=== PATIENT | female | born 1995 | race Caucasian/White ===

== ENCOUNTER 2017-05-13 17:32 | Emergency (ER) | payer MEDICAID ==
[~2017-05-13] VITALS: Ht 165.1 cm; Wt 49.0 kg
[2017-05-13 18:07] LABS: URINE BILIRUBIN NEGATIVE (Negative); URINE BLOOD NEGATIVE (Negative); URINE CLARITY CLEAR; URINE COLOR YELLOW; URINE GLUCOSE-RANDOM NEGATIVE (Negative); URINE KETONES 2+ (Negative); URINE LEUKOCYTES-REFLEX NEGATIVE (Negative); URINE NITRITE-REFLEX NEGATIVE (Negative); URINE PROTEIN TRACE (Negative); URINE SPECIFIC GRAVITY >= 1.030 (1.005-1.030); URINE UROBILINOGEN 0.2 E.U./dl (0.2-1.0)
[2017-05-13 18:13] LABS: ABSOLUTE LYMPHOCYTES 1.5 thou/uL (0.8-5.3); ABSOLUTE MONOCYTES 0.6 thou/uL (0.0-1.2); ABSOLUTE NEUTROPHILS 10.1 thou/uL (1.6-8.1); BASOPHILS 0.3 %; EOSINOPHILS 0.1 %; HEMATOCRIT 39.2 % (37.0-47.0); HEMOGLOBIN 13.2 gm/dL (12.0-15.0); MCH 31.1 pg (26.0-34.0); MCHC 33.7 g/dL (28.0-37.0); MCV 92.2 fL (80.0-100.0); MONOCYTES 4.9 %; NUCLEATED RBCS 0 /100WBC; PLATELET COUNT* 204 thou/uL (150-400); POLYS 82.7 %; RBC 4.25 mil/uL (4.20-5.00); RDW-CV 13.3 % (10.5-14.5); WBC 12.2 thou/uL (4.0-11.0)
[2017-05-13 18:18] LABS: CALCIUM 9.1 mg/dL (8.5-10.1); CREATININE 0.7 mg/dL (0.6-1.3); POTASSIUM 3.7 mmol/L (3.5-5.1)
[2017-05-13 18:22] LABS: ALBUMIN 3.9 g/dL (3.4-5.0); TOTAL BILIRUBIN 1.1 mg/dL (<0.1-1.0); TOTAL PROTEIN 6.9 g/dL (6.4-8.2)
[2017-05-13] MEDS ORDERED: ZOFRAN ODT4 MG DISSOLVE (19:25)
[2017-05-13 19:44] VITALS: BP 136/77
== END 2017-05-13 19:46 | disposition home or self-care (01) ==
LOC: M.ERS 17:32
PROVIDERS: Physician Assistant
DX: O26.891 Other specified pregnancy related conditions, first trimester (principal); K52.9 Noninfective gastroenteritis and colitis, unspecified; Z3A.00 Weeks of gestation of pregnancy not specified

== ENCOUNTER 2017-07-03 11:36 | Emergency (ER) | payer OTHER, MEDICAID ==
[~2017-07-03] VITALS: Ht 167.6 cm; Wt 50.8 kg
[~2017-07-03 11:36] MED LIST: ZOFRAN ODT4 MG DISSOLVE
[2017-07-03 12:25] LABS: CALCIUM 9.3 mg/dL (8.5-10.1); CREATININE 0.6 mg/dL (0.6-1.3); POTASSIUM 3.5 mmol/L (3.5-5.1)
[2017-07-03 12:30] LABS: ALBUMIN 3.6 g/dL (3.4-5.0); TOTAL BILIRUBIN 0.7 mg/dL (<0.1-1.0); TOTAL PROTEIN 6.9 g/dL (6.4-8.2)
[2017-07-03 12:49] LABS: URINE BILIRUBIN NEGATIVE (Negative); URINE BLOOD NEGATIVE (Negative); URINE CLARITY CLOUDY; URINE COLOR YELLOW; URINE GLUCOSE-RANDOM NEGATIVE (Negative); URINE KETONES NEGATIVE (Negative); URINE NITRITE-REFLEX NEGATIVE (Negative); URINE PROTEIN 1+ (Negative); URINE SPECIFIC GRAVITY 1.015 (1.005-1.030); URINE UROBILINOGEN 0.2 E.U./dl (0.2-1.0)
[2017-07-03 12:53] LABS: URINE LEUKOCYTES-REFLEX 2+ (Negative)
[2017-07-03 13:07] LABS: SQUAMOUS >10 Many /LPF (0-3)
[2017-07-03 13:08] LABS: BACTERIA-REFLEX >30 Many /HPF (None Seen); URINE RBC 0-2 Rare /HPF (0-2); URINE WBC-REFLEX >25 Many /HPF (0-5)
[2017-07-03 13:09] LABS: AMORPHOUS PHOSPHATES Moderate /LPF (None Seen); CASTS None Seen /LPF (None Seen)
[2017-07-03] MEDS ORDERED: DICLEGIS DR 101 EACH PO (13:27)
[2017-07-03] MEDS ORDERED: MACROBID 100 M100 M1 PO (13:28)
[2017-07-03] MEDS ORDERED: ZOFRAN4 MG PO (13:47)
[2017-07-03 13:53] VITALS: BP 98/51
== END 2017-07-03 13:53 | disposition home or self-care (01) ==
LOC: M.ERS 11:36
PROVIDERS: Nurse Practitioner Family
DX: O21.1 Hyperemesis gravidarum with metabolic disturbance (principal); Z3A.13 13 weeks gestation of pregnancy

== ENCOUNTER 2018-10-19 22:21 | Emergency (ER) | payer OTHER, MEDICAID ==
[~2018-10-19] VITALS: Ht 165.1 cm; Wt 49.9 kg
[~2018-10-19 22:21] MED LIST changes: +DICLEGIS DR 101 EACH PO; +MACROBID 100 M100 M1 PO; +ZOFRAN4 MG PO
[2018-10-19 22:28] VITALS: BP 107/73
== END 2018-10-19 22:57 | disposition home or self-care (01) ==
LOC: M.ERS 22:21
DX: S00.93XA Contusion of unspecified part of head, initial encounter (principal); W06.XXXA Fall from bed, initial encounter; Y92.89 Other specified places as the place of occurrence of the external cause; Y93.89 Activity, other specified; Y99.8 Other external cause status

== ENCOUNTER 2019-08-26 15:30 | Emergency (ER) | payer OTHER, MEDICAID | END 2019-08-26 17:17 | disposition home or self-care (01) | LOC: M.ERS 15:30 | DX: N39.0 Urinary tract infection, site not specified (principal); Z87.440 Personal history of urinary (tract) infections ==

== ENCOUNTER 2020-07-03 18:37 | Emergency (ER) | payer OTHER, MEDICAID ==
[~2020-07-03] VITALS: Ht 165.1 cm; Wt 54.4 kg
[~2020-07-03 18:37] MED LIST changes: +CIPROFLOXACIN500 M1 PO; +NAPROSYN500 MG PO
[2020-07-03] MEDS ORDERED: PHENERGAN 25 MG25 M1 PO ×2 (18:59→21:08)
[2020-07-03 19:11] LABS: ABSOLUTE BASOPHILS 0.1 thou/uL (0.0-0.2); ABSOLUTE LYMPHOCYTES 2.4 thou/uL (0.8-5.3); ABSOLUTE MONOCYTES 0.7 thou/uL (0.0-1.2); ABSOLUTE NEUTROPHILS 11.6 thou/uL (1.6-8.1); BASOPHILS 0.6 %; EOSINOPHILS 0.3 %; HEMATOCRIT 35.5 % (37.0-47.0); LYMPHOCYTES 16.1 %; MCH 31.1 pg (26.0-34.0); MCHC 33.8 g/dL (28.0-37.0); MONOCYTES 4.6 %; MPV 7.8 fl. (7.2-11.1); NUCLEATED RBCS 0 /100WBC; PLATELET COUNT* 233 thou/uL (150-400); POLYS 78.4 %; RBC 3.86 mil/uL (4.20-5.00); RDW-CV 14.2 % (10.5-14.5); WBC 14.8 thou/uL (4.0-11.0)
[2020-07-03 19:16] LABS: CALCIUM 9.1 mg/dL (8.5-10.1); CREATININE 0.5 mg/dL (0.6-1.3); POTASSIUM 3.7 mmol/L (3.5-5.1)
[2020-07-03 19:21] LABS: ALBUMIN 3.6 g/dL (3.4-5.0); TOTAL BILIRUBIN 0.7 mg/dL (<0.1-1.0); TOTAL PROTEIN 7.2 g/dL (6.4-8.2)
[2020-07-03 21:39] VITALS: BP 110/60
--- NOTE | 2020-07-04 12:19 | EKG ---
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 07/04/20 1219 54 54 Wilson Correa MD, FACC /EPI
== END 2020-07-03 21:40 | disposition home or self-care (01) ==
LOC: M.ERS 18:37
PROVIDERS: Emergency Medicine
DX: O26.892 Other specified pregnancy related conditions, second trimester (principal); S16.1XXA Strain of muscle, fascia and tendon at neck level, initial encounter; S09.8XXA Other specified injuries of head, initial encounter; O21.8 Other vomiting complicating pregnancy; O23.42 Unspecified infection of urinary tract in pregnancy, second trimester; Z3A.17 17 weeks gestation of pregnancy; Z79.899 Other long term (current) drug therapy; W22.8XXA Striking against or struck by other objects, initial encounter; Y93.89 Activity, other specified; Y92.89 Other specified places as the place of occurrence of the external cause; Y99.8 Other external cause status

== ENCOUNTER 2020-12-29 15:42 | Emergency (ER) | payer OTHER, MEDICAID ==
[~2020-12-29] VITALS: Ht 165.1 cm; Wt 54.4 kg
[~2020-12-29 15:42] MED LIST changes: +PHENERGAN 25 MG25 M1 PO
[2020-12-29] MEDS ORDERED: CEPHALEXIN500 MG PO (17:02)
[2020-12-29 17:19] VITALS: BP 128/59
== END 2020-12-29 17:20 | disposition home or self-care (01) ==
LOC: M.ERS 15:42
DX: L02.31 Cutaneous abscess of buttock (principal)